=== PATIENT | female | born 1980 | race Caucasian/White ===

== ENCOUNTER 2023-12-20 08:32 | Emergency (ER) | payer OTHER, SELFPAY | END 2023-12-20 12:07 | disposition home or self-care (01) | LOC: ERS 08:32 | DX: R51.9 Headache, unspecified (principal); R42 Dizziness and giddiness; T43.8X5A Adverse effect of other psychotropic drugs, initial encounter; I10 Essential (primary) hypertension | CPT/HCPCS: 71045; 93005 ==